=== PATIENT | female | born 1945 | race Caucasian/White ===

== ENCOUNTER 2019-06-20 15:24 | Emergency (ER) | payer MEDICARE, BC ==
[2019-06-20 15:45] VITALS: BP 171/83; PULSE 63
--- NOTE | 2019-06-20 17:07 | EDM.PDOC ---
ED HPI GENERAL MEDICAL PROBLEM - General Chief Complaint: Cardiovascular Problem Stated Complaint: SENT FROM [place] FOR HEART ISSUES Time Seen by Provider: 06/20/19 15:27 Source of Information: Reports: Patient, Provider History Limitations: Reports: No Limitations - History of Present Illness INITIAL COMMENTS - FREE TEXT/NARRATIVE: The patient presents from [facility] for her chest not feeling right. She went to coffee this morning and on the way home she did not feel right. She was exhausted and she had a funny feeling in her upper chest. She also felt a little queazy. She went to see Winter Portillo at the [facility] to have sutures removed in her hand from an injury. She mentioned how she felt and Gianna did an EKG. It showed a sinus bradycardia. She wanted to get a troponin so she sent her here. The patient says she does feel better. She does have a funny feeling up in her chest. She has no shortness of breath or chest pain. She has no fever, chills, cough, abdominal pain, nausea or vomiting. Onset: Gradual Duration: Hour(s): Location: Reports: Chest Quality: Reports: Other (Funny feeling) Severity: Mild Improves with: Reports: None Worsens with: Reports: None Associated Symptoms: Reports: Chest Pain. Denies: Cough, Fever/Chills, Headaches, Nausea/Vomiting, Shortness of Breath - Related Data Allergies Allergy/AdvReac Type Severity Reaction Status Date / Time bacitracin Allergy unknown Verified 02/28/16 13:07 balsam robb Allergy unknown Verified 02/28/16 13:07 benzalkonium Allergy unknown Verified 02/28/16 13:07 benzyl alcohol Allergy unknown Verified 02/28/16 13:07 cocamidopropyl betaine Allergy unknown Verified 02/28/16 13:07 diazolidinyl urea Allergy unknown Verified 02/28/16 13:07 ethylenediamine Allergy unknown Verified 02/28/16 13:07 etomidate [From Amidate] Allergy unknown Verified 02/28/16 13:07 formaldehyde Allergy unknown Verified 02/28/16 13:07 gold sodium thiomalate Allergy unknown Verified 02/28/16 13:07 lanolin alcohols Allergy unknown Verified 02/28/16 13:07 latex Allergy unknown Verified 02/28/16 13:07 methylchloroisothiazolinone Allergy unknown Verified 02/28/16 13:07 neomycin [Neomycin] Allergy Cannot Verified 02/28/16 13:07 Remember nickel Allergy unknown Verified 02/28/16 13:07 oleandomycin Allergy unknown Verified 02/28/16 13:07 paraben Allergy unknown Verified 02/28/16 13:07 quaternium Allergy unknown Verified 02/28/16 13:07 rosuvastatin calcium Allergy unknown Verified 02/28/16 13:07 [From Crestor] tixocortol Allergy unknown Verified 02/28/16 13:07 topiramate [From Topamax] Allergy unknown Verified 02/28/16 13:07 wool Allergy unknown Verified 02/28/16 13:07 amerchol Allergy unknown Uncoded 02/28/16 13:07 fragrances Allergy unknown Uncoded 02/28/16 13:07 kathon Allergy unknown Uncoded 02/28/16 13:07 lodoquinol Allergy unknown Uncoded 02/28/16 13:07 triazene Allergy unknown Uncoded 02/28/16 13:07 Home Meds: Home Meds Acetaminophen [Tylenol] 325 mg PO ASDIRECTED PRN 01/29/16 [History] Aspirin [Adult Low Dose Aspirin EC] 81 mg PO DAILY 01/29/16 [History] Cholecalciferol (Vitamin D3) [Vitamin D3] 1,000 unit PO DAILY 01/29/16 [History] Dextran 70/Hypromellose [Artificial Tears] 1 drop EYEBOTH ASDIRECTED PRN [History] Fluocinonide [Lidex 0.05% Oint] 1 applic TOP ASDIRECTED PRN 01/29/16 [History] Glucosamine HCl [Glucosamine] 1,500 mg PO DAILY 01/29/16 [History] Ketorolac [Acular 0.5% Ophth Soln] 1 drop EYERT QID 01/29/16 [History] Levothyroxine Sodium 100 mcg PO DAILY 01/29/16 [History] Lidocaine 4% [Xylocaine 4% Top Soln] 50 ml TOP ASDIRECTED PRN 01/29/16 [History] Mometasone Furoate [Elocon 0.1% Crm] 1 applic TOP ASDIRECTED PRN 01/29/16 [ History] Ofloxacin 1 drop EYERT QID 01/29/16 [History] Simvastatin 20 mg PO DAILY 01/29/16 [History] Ubidecarenone [Coq-10] 100 mg PO DAILY 01/29/16 [History] prednisoLONE Acetate [Prednisolone Acetate] 1 drop EYERT QID 01/29/16 [History] Calcium Carbonate/Vitamin D3 [Calcium 500 + Vit D Caplet] 1 tab PO DAILY [History] Prilocaine HCl [Prilocaine] 1 applic TOP ASDIRECTED 02/27/16 [History] Triamcinolone Acetonide [Triamcinolone Acetonide 0.1% Crm] 1 applic TOP ASDIRECTED 02/27/16 [History] Past Medical History Cardiovascular History: Reports: Afib, High Cholesterol Endocrine/Metabolic History: Reports: Hypothyroidism Oncologic (Cancer) History: Reports: Uterine, Other (See Below) - Infectious Disease History Infectious Disease History: Reports: Hepatitis B - Past Surgical History HEENT Surgical History: Reports: Cataract Surgery, Other (See Below) GI Surgical History: Reports: Cholecystectomy Female Surgical History: Reports: Hysterectomy Dermatological Surgical History: Reports: Other (See Below) Social & Family History - Tobacco Use Smoking Status *Q: Never Smoker - Caffeine Use Caffeine Use: Reports: Coffee ED ROS GENERAL - Review of Systems Review Of Systems: See Below Constitutional: Reports: No Symptoms HEENT: Reports: No Symptoms Respiratory: Reports: No Symptoms Cardiovascular: Reports: Chest Pain (Funny feeling in his upper chest) Endocrine: Reports: No Symptoms GI/Abdominal: Reports: No Symptoms : Reports: No Symptoms Musculoskeletal: Reports: No Symptoms ED EXAM, GENERAL - Physical Exam Exam: See Below Exam Limited By: No Limitations General Appearance: Alert, No Apparent Distress Ears: Normal External Exam Nose: Normal Inspection Head: Atraumatic, Normocephalic Neck: Normal Inspection, Supple, Non-Tender Respiratory/Chest: No Respiratory Distress, Lungs Clear, Normal Breath Sounds Cardiovascular: Regular Rate, Rhythm, No Edema, No Murmur GI/Abdominal: Soft, Non-Tender, No Organomegaly, No Mass Back Exam: Normal Inspection Extremities: Normal Inspection EKG INTERPRETATION EKG Date: 06/20/19 Time: 16:23 Rhythm: NSR Rate (Beats/Min): 62 [place]: Normal P-Wave: Present QRS: Normal ST-T: Normal QT: Normal Course - Vital Signs Last Recorded V/S: Last Vital Signs Temp 97.5 F 06/20/19 15:38 Pulse 63 06/20/19 15:38 Resp 18 06/20/19 15:38 BP 171/83 H 06/20/19 15:38 Pulse Ox 100 06/20/19 15:38 - Orders/Labs/Meds Orders: Active Orders 24 hr Category Date Time Status Cardiac Monitoring [RC] . DIRECTED Care 06/20/19 16:11 Active EKG Documentation Completion [RC] STAT Care 06/20/19 16:11 Active Labs: Laboratory Tests 06/20/19 06/20/19 Range/Units 16:50 16:50 WBC 6.85 (3.98-10.04) K/mm3 RBC 4.22 (3.98-5.22) M/mm3 Hgb 12.8 (11.2-15.7) gm/dl Hct 38.8 (34.1-44.9) % MCV 91.9 (79.4-94.8) fl MCH 30.3 (25.6-32.2) pg MCHC 33.0 (32.2-35.5) g/dl RDW Std Deviation 42.3 (36.4-46.3) fL Plt Count 243 (182-369) K/mm3 MPV 8.7 L (9.4-12.3) fl Neut % (Auto) 66.9 (34.0-71.1) % Lymph % (Auto) 23.8 (19.3-51.7) % Mayes % (Auto) 5.5 (4.7-12.5) % Eos % (Auto) 2.9 (0.7-5.8) Baso % (Auto) 0.9 (0.1-1.2) % Neut # (Auto) 4.58 (1.56-6.13) K/mm3 Lymph # (Auto) 1.63 (1.18-3.74) K/mm3 Mayes # (Auto) 0.38 H (0.24-0.36) K/mm3 Eos # (Auto) 0.20 (0.04-0.36) K/mm3 Baso # (Auto) 0.06 (0.01-0.08) K/mm3 Sodium 139 (136-145) mEq/L Potassium 4.7 (3.5-5.1) mEq/L Chloride 103 (98-107) mEq/L Carbon Dioxide 27 (21-32) mEq/L Anion Gap 13.7 (5-15) BUN 22 H (7-18) mg/dL Creatinine 0.9 (0.55-1.02) mg/dL Est Cr Clr Drug Dosing 52.52 mL/min Estimated GFR (MDRD) > 60 (>60) mL/min BUN/Creatinine Ratio 24.4 H (14-18) Glucose 86 (83-115) mg/dL Calcium 9.0 (8.5-10.1) mg/dL Total Bilirubin 0.5 (0.2-1.0) mg/dL AST 28 (15-37) U/L ALT 30 (14-59) U/L Alkaline Phosphatase 57 (46-116) U/L Troponin I < 0.017 (0.00-0.056) ng/mL Total Protein 7.1 (6.4-8.2) g/dl Albumin 3.7 (3.4-5.0) g/dl Globulin 3.4 gm/dL Albumin/Globulin Ratio 1.1 (1-2) - Re-Assessments/Exams Free Text/Narrative Re-Assessment/Exam: 06/20/19 17:43 I ordered an EKG and labs. Her EKG shows a NSR with no acute changes. Her CBC and CMP look good. Her troponin is negative. I will discharge her home. 06/20/19 17:44 Her bradycardia that was on her clinic EKG has resolved. Departure - Departure Time of Disposition: 17:45 Disposition: Home, Self-Care 01 Condition: Good Clinical Impression: Bradycardia, Atypical chest pain Referrals: Cynthia Portillo PA-C [Primary Care Provider] - 1 Week Forms: ED Department Discharge Additional Instructions: Take your medication as prescribed. Drink plenty of fluids. Follow up with Milind Portillo within a week. Please return if you are worse. - My Orders Last 24 Hours: My Active Orders 06/20/19 16:11 Cardiac Monitoring [RC] . DIRECTED EKG Documentation Completion [RC] STAT - Assessment/Plan Last 24 Hours: My Active Orders 06/20/19 16:11 Cardiac Monitoring [RC] . DIRECTED EKG Documentation Completion [RC] STAT
== END 2019-06-20 17:52 | disposition home or self-care (01) ==
LOC: JD.ED 15:24
DX: R07.89 Other chest pain (principal); R00.1 Bradycardia, unspecified; I48.91 Unspecified atrial fibrillation; E03.9 Hypothyroidism, unspecified; E78.00 Pure hypercholesterolemia, unspecified; Z79.82 Long term (current) use of aspirin; Z79.890 Hormone replacement therapy; Z79.899 Other long term (current) drug therapy; Z88.1 Allergy status to other antibiotic agents; Z91.048 Other nonmedicinal substance allergy status; Z91.040 Latex allergy status; Z88.8 Allergy status to other drugs, medicaments and biological substances
CPT/HCPCS: 36415; 80053; 84484; 85025; 93005; 93010; 99284; 99285-25

== ENCOUNTER 2024-03-13 15:37 | Emergency (ER) | payer MEDICARE, BC ==
[2024-03-13 22:57] LABS: BASOPHILS PERCENT AUTO 0.9 % (0.0-1.0); EOSINOPHILS ABSOLUTE AUTO 0.4 K/mm3 (0.0-0.4); EOSINOPHILS PERCENT AUTO 9.5 % (0.0-6.0); HEMATOCRIT 36.5 % (37.0-47.0); HEMOGLOBIN 11.8 gm/dl (12.0-16.0); IMMATURE GRAN ABSOLUTE AUTO 0.01 K/mm3 (0.00-0.05); IMMATURE GRAN PERCENT AUTO 0.2 % (0.0-0.4); LYMPHOCYTES ABSOLUTE AUTO 0.6 K/mm3 (1.0-4.8); LYMPHOCYTES PERCENT AUTO 13.8 % (24.0-44.0); MEAN CORPUSCULAR HEMOGLOBIN 30.6 pg (28.0-32.0); MEAN CORPUSCULAR HGB CONC 32.3 g/dl (32.0-36.0); MEAN CORPUSCULAR VOLUME 94.8 fl (83.0-99.0); MEAN PLATELET VOLUME 9.8 fl (9.4-12.3); MONOCYTES ABSOLUTE AUTO 0.4 K/mm3 (0.0-0.8); NEUTROPHILS ABSOLUTE AUTO 2.9 K/mm3 (1.8-7.7); NEUTROPHILS PERCENT AUTO 65.6 % (41.0-71.0); PLATELET COUNT,PLT 224 K/mm3 (150-400); RED BLOOD CELL COUNT 3.85 M/mm3 (4.10-5.30); WHITE BLOOD CELL COUNT,WBC 4.41 K/mm3 (3.9-11.3)
[2024-03-13 23:17] LABS: A/G RATIO 0.9 (1-2); ALBUMIN 3.3 g/dl (3.4-5.0); ANION GAP 13.8 (5-15); BILIRUBIN TOTAL 0.3 mg/dL (0.2-1.0); BUN/CREATININE RATIO 33.8 (14-18); C-REACTIVE PROTEIN 0.1 mg/dL (<0.30); CREATININE 1.3 mg/dL (0.55-1.02); EST CRCL DRUG DOSING (CG) 31.68 mL/min; POTASSIUM,K 3.8 mEq/L (3.5-5.1); PROTEIN TOTAL,TP 7.1 g/dl (6.4-8.2)
[2024-03-13 23:20] LABS: LACTIC ACID 1.1 mmol/L (0.4-2.0)
[2024-03-14 01:09] VITALS: BP 139/68; PULSE 75
== END 2024-03-14 01:06 | disposition home or self-care (01) ==
LOC: JD.ED 15:37
DX: S81.802D Unspecified open wound, left lower leg, subsequent encounter (principal); I10 Essential (primary) hypertension; E78.00 Pure hypercholesterolemia, unspecified; E03.9 Hypothyroidism, unspecified; Z88.1 Allergy status to other antibiotic agents; Z91.040 Latex allergy status; Z88.8 Allergy status to other drugs, medicaments and biological substances; Z91.048 Other nonmedicinal substance allergy status; Z79.82 Long term (current) use of aspirin; Z79.890 Hormone replacement therapy; Z79.899 Other long term (current) drug therapy; Z90.49 Acquired absence of other specified parts of digestive tract; Z90.710 Acquired absence of both cervix and uterus; X58.XXXD Exposure to other specified factors, subsequent encounter
CPT/HCPCS: 36415; 80053; 83605; 85025; 86140; 87040; 99282; 99283

== ENCOUNTER 2024-09-04 09:13 | Emergency (ER) | payer MEDICARE, BC ==
[2024-09-04 10:03] LABS: BASOPHILS PERCENT AUTO 0.2 % (0.0-1.0); EOSINOPHILS PERCENT AUTO 0.1 % (0.0-6.0); HEMATOCRIT 35.8 % (37.0-47.0); HEMOGLOBIN 12.2 gm/dl (12.0-16.0); IMMATURE GRAN ABSOLUTE AUTO 0.03 K/mm3 (0.00-0.05); IMMATURE GRAN PERCENT AUTO 0.3 % (0.0-0.4); LYMPHOCYTES ABSOLUTE AUTO 0.7 K/mm3 (1.0-4.8); LYMPHOCYTES PERCENT AUTO 7.6 % (24.0-44.0); MEAN CORPUSCULAR HEMOGLOBIN 32.2 pg (28.0-32.0); MEAN CORPUSCULAR HGB CONC 34.1 g/dl (32.0-36.0); MEAN CORPUSCULAR VOLUME 94.5 fl (83.0-99.0); MEAN PLATELET VOLUME 9.4 fl (9.4-12.3); MONOCYTES PERCENT AUTO 10.9 % (0.0-8.0); NEUTROPHILS ABSOLUTE AUTO 7.4 K/mm3 (1.8-7.7); NEUTROPHILS PERCENT AUTO 80.9 % (41.0-71.0); PLATELET COUNT,PLT 180 K/mm3 (150-400); RED BLOOD CELL COUNT 3.79 M/mm3 (4.10-5.30); WHITE BLOOD CELL COUNT,WBC 9.17 K/mm3 (3.9-11.3)
[2024-09-04] MEDS: cefTRIAXone 2 GM Vial IVPUSH ONE (10:13)
[2024-09-04] MEDS: Sodium Chloride 0.9% 10 ML Syringe FLUSH PRN (10:14)
[2024-09-04] MEDS: Sodium Chloride 0.9% 10 ML Syringe FLUSH ONE (10:14)
[2024-09-04 10:29] LABS: A/G RATIO 0.8 (1-2); ALBUMIN 3.3 g/dl (3.4-5.0); ANION GAP 12.9 (5-15); BILIRUBIN TOTAL 0.8 mg/dL (0.2-1.0); BUN/CREATININE RATIO 32.9 (14-18); C-REACTIVE PROTEIN 5.75 mg/dL (<0.30); CALCIUM 9.7 mg/dL (8.5-10.1); CREATININE 1.4 mg/dL (0.55-1.02); EST CRCL DRUG DOSING (CG) 28.84 mL/min; POTASSIUM,K 3.9 mEq/L (3.5-5.1); PROTEIN TOTAL,TP 7.4 g/dl (6.4-8.2)
[2024-09-04] MEDS: Iopamidol 755 Mg/ML 100 ML Bottle IVPUSH ONE (10:48)
[2024-09-04 14:28] VITALS: BP 159/81; PULSE 78
== END 2024-09-04 11:57 | disposition home or self-care (01) ==
LOC: JD.ED 09:13
DX: L03.211 Cellulitis of face (principal); E78.00 Pure hypercholesterolemia, unspecified; E03.9 Hypothyroidism, unspecified; Z90.49 Acquired absence of other specified parts of digestive tract; Z90.710 Acquired absence of both cervix and uterus; Z88.5 Allergy status to narcotic agent; Z88.4 Allergy status to anesthetic agent; Z88.8 Allergy status to other drugs, medicaments and biological substances; Z91.048 Other nonmedicinal substance allergy status; Z79.82 Long term (current) use of aspirin; Z79.890 Hormone replacement therapy; Z79.899 Other long term (current) drug therapy
CPT/HCPCS: 36415; 70487; 80053; 85025; 86140; 96374; 99284; J0696; Q9967